=== PATIENT | male | born 1970 | race Two or more races ===

== ENCOUNTER 2017-11-26 10:15 | Emergency (ER) | payer OTHER ==
[~2017-11-26] VITALS: Ht 162.6 cm; Wt 70.3 kg
[2017-11-26 10:44] VITALS: BP 126/91
== END 2017-11-26 14:31 | disposition home or self-care (01) ==
LOC: ER 10:15
DX: M70.51 Other bursitis of knee, right knee (principal); Y93.89 Activity, other specified
CPT/HCPCS: 36415; 73700; 84550; 93971

== ENCOUNTER 2024-02-12 18:19 | Emergency (ER) | payer MEDICAID, OTHER ==
[~2024-02-12] VITALS: Ht 160 cm; Wt 71.6 kg
[2024-02-12 18:50] VITALS: BP 110/78; PULSE 66; RESP 16; TEMP 97.8; O2SAT 97
[2024-02-12] MEDS ORDERED: AMOX875T4 PO (19:56)
[2024-02-12] MEDS ORDERED: IBUP-1456 PO (19:56)
== END 2024-02-12 20:53 | disposition home or self-care (01) ==
LOC: ER 18:19
DX: S60.142A Contusion of left ring finger with damage to nail, initial encounter (principal); S60.415A Abrasion of left ring finger, initial encounter; Z79.899 Other long term (current) drug therapy; W22.8XXA Striking against or struck by other objects, initial encounter; Y93.89 Activity, other specified; Y92.89 Other specified places as the place of occurrence of the external cause; Y99.0 Civilian activity done for income or pay
CPT/HCPCS: 11740; 73140